=== PATIENT | male | born 1955 | race Caucasian/White ===

== ENCOUNTER 2021-10-22 16:11 | Emergency (ER) | payer MEDICARE, SELFPAY ==
[2021-10-22 16:09] VITALS: PULSE 0; RESP 0
--- NOTE | 2021-10-22 16:58 | ED_ITS ---
HPI - CPR General Chief Complaint: Cardiac Arrest/CPR Stated Complaint: CARDIAC ARREST Time Seen by Provider: 10/22/21 16:31 Source: EMS Mode of arrival: EMS Limitations: clinical condition History of Present Illness HPI narrative: This is a 66 year old male who presents via EMS in cardiac arrest since 1529. Patient was talking with family when he passed out and hit the ground. Family thought patient had seizure activity. CPR was started prior to EMS arrival and an AED was used as well. EMS reports patient received 2 shocks prior to their arrival. Patient was found to be in VFib arrest. EMS intubated patient and continued ACLS protocol. Patient received 5 doses of epi and shock x 4 with EMS. He was also given 300 mg of amiodarone. EMS reports patient was recently started on 2 medications by cardiology. It was also reported that he was offered AICD. On arrival , patient intubated and receiving CPR in cardiac arrest. He was still in atrial fibrillation. Please see code sheet . Review of Systems Review of Systems: ROS unobtainable: Yes unobtainable due to endotracheal tube (in cardiac arrest) REPLACED BY [facility] Past Medical History Medical History (Updated 10/22/21 @ 17:13 by Ashwini Kelly MD) Degenerative disc disease Surgical History Surgical History (Updated 10/22/21 @ 17:03 by Ashwini Kelly MD) Surgical history unknown Family History Family History (Updated 11/26/10 @ 12:08 by DOCTOR UNKNOWN) Other Carcinoma of colon Social History Social History Alcohol intake: current Exam Const: General: ill appearing Other: unresponsive HENMT: Head: normocephalic Face and sinus: face symmetric Mouth: Yes other (ETT in place) Eyes: Other: bilateral pupils equal at 4 but nonreactive Resp: Auscultation: clear to auscultation bilaterally Other: no spontaneous respiration. Cardio: Other: pulseless GI: GI Palp: Yes Soft to palpation, No Guarding due to palpation present (GI) and No Rigid due to palpation Neuro: Other: unable to assess as patient unresponsive Extrem: Other: unresponsive, no movement Course Reevaluation(s) Reevaluation #1: PAtient's and one of sons brought back to room during resuscitation. See code sheet. last pulse check patient was asystole and he had been worked on for almost 1 hour so resuscitation stopped. Patient's pupils dilated fixed. Time of 1628 Date: 10/22/21 Time: 17:11 Vital Signs Vital signs: Vital Signs Pulse Rate 0 L 10/22/21 16:09 Respiratory Rate 0 L 10/22/21 16:09 Pulse Rate 0 L 10/22/21 16:09 Respiratory Rate 0 L 10/22/21 16:09 Discharge Plan Discharge Clinical Impression: Cardiac arrest Patient Disposition: Condition: Follow-up/Referrals: Andrés Trinidad MD [Primary Care Provider] - [facility] [place] Coma Scale Eyes: No Response Verbal: No Response Motor: No Response [place] Coma Total Score: 3
--- NOTE | 2021-10-22 17:25 | PC.NURSE ---
Imaging Analyst contacted at 1656 and released by their office, spoke with Stevo. [facility] contacted at 1703 and they want to contact family as a possible donor before he is released to the home. Family selected home is [facility] in [place].
--- NOTE | 2021-10-22 17:27 | PC.NURSE ---
Per family request jewelry including multiple bracelets, 1 necklace and 2 rings removed from patient. Clothing was also removed including jeans, shirt, jacket, belt, wallet and phone and given to family.
--- NOTE | 2021-10-22 17:30 | PC.NURSE ---
Pt aystole on the monitor at 1629 after several rounds of EPI and defibrillation. See code flowsheet. Code terminated at this time with Dr. Kelly and family at bedside.
== END 2021-10-22 18:21 | disposition expired ==
PROVIDERS: Emergency Provider General Practice; PCP Internal Medicine
DX: I46.9 Cardiac arrest, cause unspecified (principal)
CPT/HCPCS: 92950; 99285; J0171; J0282; J3475